=== PATIENT | female | born 1935 | race Caucasian/White ===

== ENCOUNTER 2025-01-12 12:37 | Inpatient (IN) | payer MEDICARE ==
[2025-01-12] VITALS (16 sets, daily range): BP systolic 131–210; BP diastolic 63–99; PULSE 48–60; RESP 12–18; TEMP 96.9–97.7; O2SAT 90–100
[~2025-01-12] VITALS: Ht 152.4 cm; Wt 56.7 kg
[2025-01-12] MEDS: HYDRALAZINE HCL 20 MG/ML VIAL IV STA (13:56)
[2025-01-12 14:11] LABS: BASOPHILS # (AUTO) 0.1 (0.0-0.1); BASOPHILS % 0.6 % (0.0-1.0); EOSINOPHILS # (AUTO) 0.1 (0.0-0.4); EOSINOPHILS % 1.1 % (0.0-6.0); HEMATOCRIT 43.9 % (34.2-44.1); HEMOGLOBIN 15.1 g/dL (12.0-16.0); LYMPHOCYTES # (AUTO) 3.1 (1.0-3.2); LYMPHOCYTES % 37.5 % (18.0-39.1); MEAN CORPUSCULAR HEMOGLOBIN 30.5 pg (28-32); MEAN CORPUSCULAR HGB CONC 34.4 g/dL (31-35); MEAN CORPUSCULAR VOLUME 88.7 fL (81-99); MONOCYTES # (AUTO) 0.6 (0.2-0.8); NEUTROPHILS # (AUTO) 4.4 (2.1-6.9); NEUTROPHILS % 53.6 % (38.7-80.0); PLATELET COUNT 151 x10e3/uL (140-360); RED BLOOD COUNT 4.95 x10e6/uL (3.6-5.1); RED CELL DISTRIBUTION WIDTH 14.6 % (11.7-14.4); WHITE BLOOD COUNT 8.18 x10e3/uL (4.8-10.8)
[2025-01-12 14:30] LABS: INR 1.07; PARTIAL THROMBOPLASTIN TIME 27.6 seconds (23.8-35.5); PROTHROMBIN TIME 14.5 seconds (11.9-14.5)
[2025-01-12 14:37] LABS: ALBUMIN 3.9 g/dL (3.5-5.0); ALBUMIN/GLOBULIN RATIO 1.1 (0.8-2.0); ANION GAP 15.1 mmol/L (8-16); CALCIUM 9.2 mg/dL (8.4-10.2); CREATININE, SERUM 1.12 mg/dL (0.57-1.11); MAGNESIUM 1.9 MG/DL (1.3-2.1); TOTAL PROTEIN 7.6 g/dL (6.5-8.1)
[2025-01-12 14:43] LABS: POTASSIUM 3.1 mmol/L (3.5-5.1); TROPONIN I 0.036 ng/mL (0-0.300)
[2025-01-12] MEDS ORDERED: ACETAMINOPHEN 325 MG TAB PO PRN ×2 (15:15→16:15)
[2025-01-12 15:28] LABS: PLATELET CLUMPS FEW; PLATELET ESTIMATE ADEQUATE; PLATELET MORPHOLOGY COMMENT NORMAL; RBC MORPHOLOGY COMMENT NORMAL
[2025-01-12] MEDS: DOXYCYCLINE HYCLATE TABLET 100 MG TAB PO SCH (16:22)
[2025-01-12] MEDS: POTASSIUM CHLORIDE 20 MEQ TAB CR PO STA (16:22)
[2025-01-12] MEDS: HYDRALAZINE HCL 20 MG/ML VIAL IV PRN (19:51)
[2025-01-12] MEDS: GENTAMICIN SULFATE 40 MG/ML 2 ML VIAL ONE (20:05)
[2025-01-12] MEDS: LIDOCAINE HCL 2% LOCAL 20 ML VIAL ONE (20:06)
[2025-01-12] MEDS: SODIUM CHLORIDE 0.9% 500ML 500 ML ONE (20:06)
[2025-01-12] MEDS: SODIUM CHLORIDE 0.9% 250ML 250 ML ONE (20:06)
[2025-01-12] MEDS: IOPAMIDOL 610MG/1ML 300 MG/ML VIAL IV ONE (20:06)
[2025-01-12] MEDS: SODIUM BICARBONATE 8.4% SYRING 50 ML ONE (20:06)
[2025-01-12] MEDS: SODIUM CHLORIDE 0.9% 1000ML 2,000 ML ONE (20:06)
[2025-01-12] MEDS: Vancomycin IV 1 GM VIAL ONE (20:06)
[2025-01-12] MEDS: MIDAZOLAM HCL 2 MG/2 ML VIAL ONE ×2 (20:07)
[2025-01-12] MEDS: FENTANYL CITRATE/PF 100MCG/2 ML INJ ONE (20:07)
[2025-01-12] MEDS: ONDANSETRON HCL INJ 2MG/ML 2ML 2 MG/ML VIAL IV PRN (20:44)
[2025-01-12] MEDS ORDERED: TEMAZEPAM 7.5 MG CAP PO PRN (21:00)
[2025-01-12] MEDS ORDERED: FLECAINIDE ACE100 MG (21:37)
[2025-01-12] MEDS ORDERED: LEVOTHYROXINE125 MCG (21:37)
[2025-01-12] MEDS ORDERED: LOPRESSOR25 MG (21:37)
[2025-01-13] VITALS (15 sets, daily range): BP systolic 131–193; BP diastolic 63–137; PULSE 60–64; RESP 8–17; TEMP 98.6–98.9; O2SAT 90–96
[2025-01-13] MEDS: TRAMADOL HCL 50 MG TAB PO PRN (02:10)
[2025-01-13 06:45] LABS: BASOPHILS # (AUTO) 0.1 (0.0-0.1); BASOPHILS % 0.5 % (0.0-1.0); EOSINOPHILS % 0.1 % (0.0-6.0); HEMATOCRIT 42.4 % (34.2-44.1); HEMOGLOBIN 14.6 g/dL (12.0-16.0); LYMPHOCYTES # (AUTO) 1.4 (1.0-3.2); LYMPHOCYTES % 12.7 % (18.0-39.1); MEAN CORPUSCULAR HEMOGLOBIN 30.6 pg (28-32); MEAN CORPUSCULAR HGB CONC 34.4 g/dL (31-35); MEAN CORPUSCULAR VOLUME 88.9 fL (81-99); MONOCYTES # (AUTO) 0.3 (0.2-0.8); MONOCYTES % 3.1 % (4.4-11.3); NEUTROPHILS # (AUTO) 8.9 (2.1-6.9); NEUTROPHILS % 83.2 % (38.7-80.0); RED BLOOD COUNT 4.77 x10e6/uL (3.6-5.1); RED CELL DISTRIBUTION WIDTH 14.6 % (11.7-14.4); WHITE BLOOD COUNT 10.64 x10e3/uL (4.8-10.8)
[2025-01-13 06:52] LABS: PLATELET COUNT 138 x10e3/uL (140-360)
[2025-01-13 07:22] LABS: ALBUMIN 3.6 g/dL (3.5-5.0); ALBUMIN/GLOBULIN RATIO 1.1 (0.8-2.0); ANION GAP 17.6 mmol/L (8-16); BILIRUBIN,TOTAL 1.1 mg/dL (0.2-1.2); CALCIUM 9.3 mg/dL (8.4-10.2); CHOL/HDL RATIO 4.2 (3.0-3.6); CREATININE, SERUM 0.96 mg/dL (0.57-1.11); POTASSIUM 3.6 mmol/L (3.5-5.1)
[2025-01-13] MEDS ORDERED: DOXYCYCLINE HY100 MG PO (07:48)
[2025-01-13 07:54] LABS: TROPONIN I 0.148 ng/mL (0-0.300)
[2025-01-13] MEDS: METOPROLOL TARTRATE 25 MG TAB PO SCH (08:22)
[2025-01-13] MEDS: DOXYCYCLINE HYCLATE TABLET 100 MG TAB PO SCH (08:23)
[2025-01-13] MEDS: FLECAINIDE ACETATE 100 MG TAB PO SCH (08:23)
[2025-01-13] MEDS: LEVOTHYROXINE SODIUM 125 MCG TAB PO SCH (08:23)
== END 2025-01-13 13:32 | disposition home or self-care (01) | DRG 244 ==
LOC: ER 12:47 → ERHOLD 14:10 → ICU 19:43
PROVIDERS: ADMIT Internal Medicine; ATTEND Internal Medicine
PROC: 02H63JZ Insertion of Pacemaker Lead into Right Atrium, Percutaneous Approach (ICD-10-PCS; principal; 2025-01-12)
PROC: 0JH606Z Insertion of Pacemaker, Dual Chamber into Chest Subcutaneous Tissue and Fascia, Open Approach (ICD-10-PCS; 2025-01-12)
PROC: 02HK3JZ Insertion of Pacemaker Lead into Right Ventricle, Percutaneous Approach (ICD-10-PCS; 2025-01-12)
DX: R00.1 Bradycardia, unspecified (principal); I49.5 Sick sinus syndrome; I48.0 Paroxysmal atrial fibrillation; E03.9 Hypothyroidism, unspecified; I10 Essential (primary) hypertension; R55 Syncope and collapse; I25.10 Atherosclerotic heart disease of native coronary artery without angina pectoris; R53.81 Other malaise; E87.6 Hypokalemia; Z90.710 Acquired absence of both cervix and uterus; Z95.818 Presence of other cardiac implants and grafts
CPT/HCPCS: 33208; 36415; 71045; 75820; 80053; 80061; 82550; 83735; 84484; 85025; 85610; 85730; 93005; 94799; 99152; 99153; 99252; 99284; C1769; C1785; C1898; J0360; J0690; J1580; J2003; J2250; J2405; J7030; J7040; J7050